=== PATIENT | female | born 1995 | race African-American/Black ===

== ENCOUNTER 2016-12-29 07:03 | Emergency (ER) | payer MEDICAID, OTHER ==
--- NOTE | 2016-12-29 08:23 | ED ---
Breast Complaint - HPI Summary HPI Summary: Pt here w/ Lt breast lump with tenderness x 1 week. Noticed it's been getting larger as week progresses. Wears an under wire bra which often digs into skin on both sides - no skin trauma to report. Denies pain anywhere else in breast and no other skin changes, nipple d/c, axillary fullness or tenderness, fever, chills, night sweats, unintentional weight loss. She is currently working with her insurance company to get a breast reduction. No h/o breast issues but has never had an exam here. Also reports she's adopted and unaware of her fam h/o. She reports she herself has had a few cysts on her Rt wrist. Denies h/o abscess/ infections. She has [facility] for [facility] but couldn't wait as her pain is worse. - History of Current Complaint Hx Obtained From: Patient <Sue Chapman - Last Filed: 12/29/16 09:51> <Maribell Vincent - Last Filed: 12/30/16 09:53> - Allergy/Home Medications Allergies/Adverse Reactions: Allergies Allergy/AdvReac Type Severity Reaction Status Date / Time No Known Allergies Allergy Verified 12/21/15 18:55 PMH/Surg Hx/FS Hx/Imm Hx Previously Healthy: Yes Endocrine/Hematology History: Denies: Hx Anticoagulant Therapy, Hx Diabetes, Hx Thyroid Disease Cardiovascular History: Denies: Hx Hypertension Respiratory History: Denies: Hx Asthma, Hx Chronic Obstructive Pulmonary Disease (COPD) GI History: Denies: Hx Ulcer Neurological History: Reports: Hx Migraine - Surgical History Surgery Procedure, Year, and Place: wrist surgery, TONSILLECTOMY, WISDOM TEETH Infectious Disease History: No Infectious Disease History: Denies: Hx Hepatitis, Hx Human Immunodeficiency Virus (HIV), Traveled Outside the [place] in Last 30 Days - Family History Known Family History: Positive: Unknown - pt adopted - Social History Occupation: Student Lives: With Family - boyfriend Alcohol Use: None Hx Substance Use: No Substance Use Type: Reports: None Hx Tobacco Use: No Smoking Status (MU): Never Smoked Tobacco <Sue Chapman - Last Filed: 12/29/16 09:51> Review of Systems Constitutional: Negative Cardiovascular: Negative Respiratory: Negative Gastrointestinal: Negative Positive: no symptoms reported Musculoskeletal: Negative Skin: Other - see HPI Neurological: Negative Psychological: Normal All Other Systems Reviewed And Are Negative: Yes <Sue Chapman - Last Filed: 12/29/16 09:51> Physical Exam Triage Information Reviewed: Yes Vital Signs On Initial Exam: Initial Vitals Temp Pulse Resp BP Pulse Ox 97.4 F 69 16 120/71 100 12/29/16 07:15 12/29/16 07:15 12/29/16 07:15 12/29/16 07:15 12/29/16 07:15 Vital Signs Reviewed: Yes Appearance: Positive: Well-Appearing, No Pain Distress, Well-Nourished Skin: Positive: Warm, Dry, Other - 2cm area of well demarcated, firm, somewhat mobile and tender area at 7:00 in Lt breast - overlying skin w/ hyperpigmentation - no central pore, no erythema, no drainage; axillary and humeral LN's are non-palpable and NTTP; Rt axilla w/ area of mild tenderness - no julia mass palpated Head/Face: Positive: Normal Head/Face Inspection Eyes: Positive: Normal, EOMI ENT: Positive: Hearing grossly normal, Pharynx normal - mucosa moist Neck: Positive: Supple, Nontender Respiratory/Lung Sounds: Positive: Breath Sounds Present Cardiovascular: Positive: Normal, RRR, Pulses are Symmetrical in both Upper and Lower Extremities Abdomen Description: Positive: Nontender, No Organomegaly, Soft Musculoskeletal: Positive: Normal, Strength/ROM Intact Neurological: Positive: Normal, Sensory/Motor Intact, Alert, Oriented to Person Place, Time, CN Intact II-III Psychiatric: Positive: Normal <Sue Chapman - Last Filed: 12/29/16 09:51> Vital Signs On Initial Exam: Initial Vitals Temp Pulse Resp BP Pulse Ox 97.4 F 69 16 120/71 100 12/29/16 07:15 12/29/16 07:15 12/29/16 07:15 12/29/16 07:15 12/29/16 07:15 <Maribell Vincent - Last Filed: 12/30/16 09:53> Diagnostics - Vital Signs Vital Signs Temp Pulse Resp BP Pulse Ox 12/29/16 07:15 97.4 F 69 16 120/71 100 - Laboratory Result Diagrams: 12/29/16 08:25 12/29/16 08:25 Lab Statement: Any lab studies that have been ordered have been reviewed, and results considered in the medical decision making process. <Sue Chapman - Last Filed: 12/29/16 09:51> - Vital Signs Vital Signs Temp Pulse Resp BP Pulse Ox 12/29/16 10:05 97.6 F 66 16 119/85 12/29/16 08:27 60 119/88 12/29/16 07:15 97.4 F 69 16 120/71 100 - Laboratory Lab Results: Lab Results 12/29/16 12/29/16 Range/Units 08:25 08:25 WBC 8.3 (3.5-10.8) 10^3/ul RBC 4.74 (4.0-5.4) 10^6/ul Hgb 13.9 (12.0-16.0) g/dl Hct 41 (35-47) % MCV 87 (80-97) fL MCH 29 (27-31) pg MCHC 34 (31-36) g/dl RDW 13 (10.5-15) % Plt Count 211 (150-450) 10^3/ul MPV 8 (7.4-10.4) um3 Neut % (Auto) 66.6 (38-83) % Lymph % (Auto) 24.3 L (25-47) % [place] % (Auto) 7.7 (1-9) % Eos % (Auto) 0.9 (0-6) % Baso % (Auto) 0.5 (0-2) % Absolute Neuts (auto) 5.5 (1.5-7.7) 10^3/ul Absolute Lymphs (auto) 2.0 (1.0-4.8) 10^3/ul Absolute Monos (auto) 0.6 (0-0.8) 10^3/ul Absolute Eos (auto) 0.1 (0-0.6) 10^3/ul Absolute Basos (auto) 0 (0-0.2) 10^3/ul Absolute Nucleated RBC 0 10^3/ul Nucleated RBC % 0 Sodium 135 (133-145) mmol/L Potassium 4.2 (3.5-5.0) mmol/L Chloride 103 (101-111) mmol/L Carbon Dioxide 26 (22-32) mmol/L Anion Gap 6 (2-11) mmol/L BUN 16 (6-24) mg/dL Creatinine 0.71 (0.51-0.95) mg/dL Est GFR ( Amer) 133.6 (>60) Est GFR (Non-Af Amer) 103.9 (>60) BUN/Creatinine Ratio 22.5 H (8-20) Glucose 85 (70-100) mg/dL Calcium 9.3 (8.6-10.3) mg/dL Total Bilirubin 0.60 (0.2-1.0) mg/dL AST 13 (13-39) U/L ALT 11 (7-52) U/L Alkaline Phosphatase 65 (34-104) U/L Total Protein 6.8 (6.4-8.9) g/dL Albumin 4.3 (3.2-5.2) g/dL Globulin 2.5 (2-4) g/dL Albumin/Globulin Ratio 1.7 (1-3) Result Diagrams: 12/29/16 08:25 12/29/16 08:25 Lab Statement: Any lab studies that have been ordered have been reviewed, and results considered in the medical decision making process. <Maribell Vincent - Last Filed: 12/30/16 09:53> Breast Pain Course/Dx - Course Course Of Treatment: Reviewed results w/ radiologist, Dr. Mann. Discussed with pt this finding could be cancer - she voices understanding that she needs to have follow-up with a surgeon for biopsy of this complex cyst. Also reviewed other dx's such as benign cyts and education that it could become infected. She is aware of danger s/sx to watch for and when to return to ED. Provided pt w/ her breast U/S report results as well as contact information for Dr. Trent. She will also keep her appt Wed w/ PP and will release records to PP so they may help guide her through care until she can establish with a PCP. She will call referral line Friday to establish w/ PCP. - Provider Notifications Discussed Care Of Patient With: Dr. Vincent <Sue Chapman - Last Filed: 12/29/16 09:51> <Maribell Vincent - Last Filed: 12/30/16 09:53> - Diagnoses Provider Diagnoses: Cyst of left breast Discharge <Sue Chapman - Last Filed: 12/29/16 09:51> <Maribell Vincent - Last Filed: 12/30/16 09:53> - Discharge Plan Condition: Stable Disposition: HOME Patient Education Materials: Cyst (ED) Referrals: No Primary Care Phys,NOPCP [Primary Care Provider] - [facility] [place] PHYSICIAN REFERRAL [Outside] Salazar Trent MD [Medical Doctor] - Additional Instructions: Your Left breast appears to have a complex cyst. You may treat the pain here with warm compresses and ibuprofen (take 400mg - 600mg every 6 hours with food. ) [facility] appointment [facility] - they may repeat your breast exam to asses for change from today. They may also help you coordinate a follow-up appointment with a breast surgeon for biopsy of your cyst. A surgeon's name and contact information has also been provided here below if you prefer to go directly through a surgeon for biopsy at this time as you stated you are in the process of finding a primary care provider. You may establish with a PCP by calling the referral line Friday. *If you develop redness, swelling, nipple drainage, fever, chills or armpit pain /swelling sooner, return to ED Attestations User Type: Provider - I was available for consult. This patient was seen by the advanced practice provider. The patient was not seen by or examined by me. <Maribell Vincent - Last Filed: 12/30/16 09:53>
[2016-12-29 08:35] LABS: Hematocrit 41 % (35-47); Hemoglobin 13.9 g/dl (12.0-16.0); Mean Corpuscular HGB Conc 34 g/dl (31-36); Mean Corpuscular Hemoglobin 29 pg (27-31); Mean Corpuscular Volume 87 fL (80-97); Mean Platelet Volume 8 um3 (7.4-10.4); Red Blood Count 4.74 10^6/ul (4.0-5.4); Red Cell Distribution Width 13 % (10.5-15); White Blood Count 8.3 10^3/ul (3.5-10.8)
--- NOTE | 2016-12-29 09:32 | RAD ---
CLINICAL HISTORY: Palpable abnormality of the left breast in the 7:00 position COMPARISON: None TECHNIQUE: Multiple radial and antiradial ultrasound images were obtained of the left breast using grayscale and color Doppler imaging. FINDINGS: MASSES: There are no suspicious nodules or masses. ARCHITECTURE: There is no architectural distortion. CALCIFICATIONS: There is no shadowing. SPECIAL CASES: In the left breast in the 7:00 position at the area palpable, there is 1.6 x 1 x 1.5 cm complex lesion with internal echogenicity, without nodularity. The margins are somewhat dilated. There is no peripheral vascularity. There is posterior acoustic enhancement OTHER FINDINGS: None. ASSESSMENT: COMPLEX CYST OF THE LEFT BREAST IN THE 7:00 POSITION. THERE IS NO HYPERVASCULARITY TO SUGGEST ABSCESS. RECOMMENDATION: GIVEN THE IMAGING APPEARANCE AND THE HISTORY OF PALPABLE ABNORMALITY, RECOMMEND FURTHER EVALUATION WITH TISSUE SAMPLING. THIS CAN BE PERFORMED WITH PHYSICAL EXAMINATION OR ULTRASOUND GUIDED BIOPSY. THE RECOMMENDATION FOR TISSUE SAMPLING WAS DISCUSSED WITH ILDA BRIDGES AT APPROXIMATELY 9:30 AM ON DECEMBER 29, 2016 ACR BI-RADS Category 4: Suspicious
[2016-12-29 09:34] LABS: Albumin 4.3 g/dL (3.2-5.2); BUN/Creatinine Ratio 22.5 (8-20); Calcium 9.3 mg/dL (8.6-10.3); EGFR African American 133.6 (>60); EGFR Non-African American 103.9 (>60); Globulin 2.5 g/dL (2-4); Potassium 4.2 mmol/L (3.5-5.0); Total Bilirubin 0.6 mg/dL (0.2-1.0); Total Protein 6.8 g/dL (6.4-8.9)
[2016-12-29 10:08] VITALS: BP 119/85
== END 2016-12-29 10:05 | disposition home or self-care (01) ==
LOC: ED 07:03
DX: N60.02 Solitary cyst of left breast (principal)
CPT/HCPCS: 36415; 80053; 85025; 99282

== ENCOUNTER 2016-12-30 22:40 | Emergency (ER) | payer MEDICAID, OTHER ==
[2016-12-30 22:45] VITALS: BP 131/94
--- NOTE | 2016-12-30 23:48 | ED ---
Breast Complaint - HPI Summary HPI Summary: The patient is a 21 female presenting to ED for complaint of worsening pain and swelling in left breast which started several days ago. Denies fever, chills diaphoresis, redness, warmth, drainage, nipple retraction, or dimpling. History of pendulous breasts and migraines. S/P benign cyst removal from right wrist, tonsillectomy, wisdom teeth extraction. Family history unknown as patient is adopted. LMP 2 years ago due to placement of Mirena. NKDA. SH: Lives with adopted family. Denies smoking, alcohol or recreational substance use. - Allergy/Home Medications Allergies/Adverse Reactions: Allergies Allergy/AdvReac Type Severity Reaction Status Date / Time No Known Allergies Allergy Verified 12/21/15 18:55 PMH/Surg Hx/FS Hx/Imm Hx Endocrine/Hematology History: Denies: Hx Anticoagulant Therapy, Hx Diabetes, Hx Thyroid Disease Cardiovascular History: Denies: Hx Hypertension Respiratory History: Denies: Hx Asthma, Hx Chronic Obstructive Pulmonary Disease (COPD) GI History: Denies: Hx Ulcer Neurological History: Reports: Hx Migraine - Surgical History Surgery Procedure, Year, and Place: wrist surgery, TONSILLECTOMY, WISDOM TEETH Infectious Disease History: No Infectious Disease History: Denies: Hx Hepatitis, Hx Human Immunodeficiency Virus (HIV), Traveled Outside the [place] in Last 30 Days - Family History Known Family History: Positive: Unknown - pt adopted - Social History Alcohol Use: None Hx Substance Use: No Substance Use Type: Reports: None Hx Tobacco Use: No Smoking Status (MU): Never Smoked Tobacco Review of Systems Constitutional: Negative Negative: Fever, Chills Positive: Other - tender lump left breast. Negative: Rash All Other Systems Reviewed And Are Negative: Yes Physical Exam Triage Information Reviewed: Yes Vital Signs On Initial Exam: Initial Vitals Temp Pulse Resp BP Pulse Ox 97.1 F 89 18 131/94 100 12/30/16 22:42 12/30/16 22:42 12/30/16 22:42 12/30/16 22:42 12/30/16 22:42 Vital Signs Reviewed: Yes Appearance: Positive: Well-Appearing, No Pain Distress, Obese Skin: Positive: Warm, Skin Color Reflects Adequate Perfusion, Dry, Other - BREAST: large pendulous symmetric breasts, no nipple retraction or dimpling; left inferomedial breast at 7 o'clock position with 2x3cm mildly tender rubbery nodule with faint erythema without pustule or drainage; no axillary lymphadenopathy Eyes: Positive: Other: - Anicteric ENT: Positive: Hearing grossly normal, Other - Oral mucosa moist Neck: Positive: Supple Respiratory/Lung Sounds: Positive: Clear to Auscultation, Breath Sounds Present. Negative: Decreased Breath Sounds, Rales, Rhonchi, Wheezes Cardiovascular: Positive: Normal, RRR, S1, S2. Negative: Murmur, Rub, Tachycardia Musculoskeletal: Positive: Normal - AROM all extremities Neurological: Positive: Normal - awake, alert, following commands Psychiatric: Positive: Normal AVPU Assessment: Alert - [place] Coma Scale Coma Scale Total: 15 Diagnostics - Vital Signs Vital Signs Temp Pulse Resp BP Pulse Ox 12/30/16 22:42 97.1 F 89 18 131/94 100 - Laboratory Lab Statement: Any lab studies that have been ordered have been reviewed, and results considered in the medical decision making process. Breast Pain Course/Dx - Course Assessment/Plan: Patient presents for worsening pain and swelling in left breast. US demonstrates 2.5x1.6x1.1 m complex collection at 7 o'clock larger compared with 12/29/16. Suspect early abscess though malignancy not ruled out. Patient will be intiated on ABx. Advised to call general surgeon Dr. Trent tomorrow to schedule biopsy. - Diagnoses Provider Diagnoses: Breast mass in female Discharge - Discharge Plan Condition: Stable Disposition: HOME Prescriptions: Cephalexin CAP* [Keflex CAP*] 500 mg PO TID #30 cap Patient Education Materials: Breast Mass (ED) Referrals: Salazar Trent MD [Medical Doctor] - (Call tomorrow to schedule follow-up in 2 -4 days.)
[2016-12-31] MEDS ORDERED: Cephalexin CAP* 500 MG PO ONE ×2 (00:37)
--- NOTE | 2016-12-31 07:43 | RAD ---
INDICATION: 21-year-old with palpable abnormality left breast at the 7:00 position. Breast is red and tender COMPARISON: None TECHNIQUE: Radial and antiradial scans of the breast were performed using grayscale and color Doppler imaging. FINDINGS: There is a avascular, complex hypoechoic fluid collection in left breast at 7:00 measuring 2.5 x 1.6 x 1.1 cm. There is well-defined posterior wall. There is no increased through transmission or acoustic shadowing There is peripheral hypervascularity. IMPRESSION: SONOGRAPHIC FINDINGS MOST CONSISTENT WITH A BREAST ABSCESS. SUGGEST SURGICAL REFERRAL FOR MANAGEMENT OF THIS PALPABLE FINDING. SUGGEST FOLLOW-UP ULTRASONOGRAPHY AFTER APPROPRIATE INTERVENTION AND/OR THERAPY. ASSESSMENT: ACR BI-RADS Category 4: Suspicious
== END 2016-12-31 01:09 | disposition home or self-care (01) ==
LOC: ED 22:40
DX: N63 Unspecified lump in breast (principal)
CPT/HCPCS: 99282; A9270-GY

== ENCOUNTER 2017-07-01 09:46 | Emergency (ER) | payer MEDICAID, OTHER ==
[2017-07-01] MEDS ORDERED: Ibuprofen TAB* 600 MG PO ONE (11:26)
--- NOTE | 2017-07-01 12:25 | RAD ---
HISTORY: Right upper quadrant pain COMPARISONS: None TECHNIQUE: Multiple transverse and longitudinal ultrasound images were obtained of the right upper quadrant of the abdomen using grayscale and color Doppler imaging. FINDINGS: The study is limited by patient bowel gas. LIVER: The liver is normal in shape, size, contour, and echogenicity. There are no focal parenchymal masses. There is normal hepatopedal flow of the portal vein on Doppler imaging. BILIARY TREE: There is no intrahepatic or extrahepatic biliary dilatation. The common duct measures 0.3 cm. GALLBLADDER: The gallbladder is well-visualized. There is no cholelithiasis, gallbladder wall thickening, pericholecystic fluid, or sonographic [place] sign. PANCREAS: The pancreas is obscured by overlying bowel gas. RIGHT KIDNEY: The right kidney is normal in shape, size, contour, and echogenicity. There is no hydronephrosis or nephrolithiasis. The right kidney measures 9.9 x 6.7 x 5.4 cm. AORTA AND IVC: The aorta is not well-visualized. There is is unremarkable. FLUID: There are no pleural effusions. There is no free fluid within the hepatorenal recess. OTHER FINDINGS: None. IMPRESSION: LIMITED STUDY. NO ACUTE SONOGRAPHIC PATHOLOGY OF THE VISUALIZED PORTION OF THE ABDOMEN.
[2017-07-01 12:40] LABS: Hematocrit 45 % (35-47); Hemoglobin 14.8 g/dl (12.0-16.0); Mean Corpuscular HGB Conc 33 g/dl (31-36); Mean Corpuscular Hemoglobin 29 pg (27-31); Mean Corpuscular Volume 89 fL (80-97); Mean Platelet Volume 8 um3 (7.4-10.4); Red Blood Count 5.02 10^6/ul (4.0-5.4); Red Cell Distribution Width 14 % (10.5-15); White Blood Count 10.6 10^3/ul (3.5-10.8)
[2017-07-01 12:57] LABS: Albumin 4.2 g/dL (3.2-5.2); BUN/Creatinine Ratio 15.1 (8-20); C Reactive Protein 90.74 mg/L (< 5.00); Calcium 9.5 mg/dL (8.6-10.3); EGFR African American 128.2 (>60); EGFR Non-African American 99.7 (>60); Globulin 3.2 g/dL (2-4); Magnesium 2.2 mg/dL (1.9-2.7); Total Bilirubin 0.9 mg/dL (0.2-1.0); Total Protein 7.4 g/dL (6.4-8.9)
--- NOTE | 2017-07-01 13:05 | RAD ---
INDICATION: Chest pain COMPARISON: February 2011 TECHNIQUE: PA and lateral dual-energy views were obtained. FINDINGS: Bones/Soft Tissues: There are no acute bony findings. Cardiomediastinal: The cardiomediastinal silhouette is normal. Lungs: There are no infiltrates. Pleura: There are no pleural effusions. Other: Mild elevation right hemidiaphragm. IMPRESSION: NO ACTIVE DISEASE.
[2017-07-01 13:16] LABS: Urine Bacteria Absent (Absent); Urine Bilirubin Negative (Negative); Urine Glucose Negative (Negative); Urine Nitrite Negative (Negative)
--- NOTE | 2017-07-01 13:46 | ED ---
Vaishnavi Alaniz Rebecca, scribed for Gurmeet Jimenez MD on 07/01/17 at 1127 . Abdominal Pain/Female - HPI Summary HPI Summary: PT is a 22 y/o F who presents to ED c/o RUQ abdominal pain. Sx began 3 days ago and have been constant since onset, waxing and waning in intensity. Pain is currently moderate, ranked 4/10 and characterized as sharp. Sx aggravated by laying down and position change, alleviated by nothing, unchanged by food. Denies fever, chills, N/V/D, SOB, palpitations, dysuria, LE pain and edema. She last ate last night. No recent travel. NKDA - History of Current Complaint Chief Complaint: EDAbdPain Stated Complaint: RT SIDE FLANK SHARP PAIN Time Seen by Provider: 07/01/17 11:13 Hx Obtained From: Patient Hx Last Menstrual Period: iud Onset/Duration: Lasting Days - 3 days, Still Present Severity Currently: Moderate Pain Intensity: 4 Pain Scale Used: 0-10 Numeric Location: Discrete At: RUQ Character: Sharp Aggravating Factor(s): Movement, Deep Breaths Alleviating Factor(s): Nothing Associated Signs and Symptoms: Positive: Negative. Negative: Fever, Urinary Symptoms, Nausea, Vomiting, Diarrhea Allergies/Adverse Reactions: Allergies Allergy/AdvReac Type Severity Reaction Status Date / Time No Known Allergies Allergy Verified 07/01/17 09:49 PMH/Surg Hx/FS Hx/Imm Hx Endocrine/Hematology History: Denies: Hx Anticoagulant Therapy, Hx Diabetes, Hx Thyroid Disease Cardiovascular History: Denies: Hx Hypertension Respiratory History: Denies: Hx Asthma, Hx Chronic Obstructive Pulmonary Disease (COPD) GI History: Denies: Hx Ulcer Neurological History: Reports: Hx Migraine - Surgical History Surgery Procedure, Year, and Place: wrist surgery, TONSILLECTOMY, WISDOM TEETH Infectious Disease History: No Infectious Disease History: Denies: Hx Hepatitis, Hx Human Immunodeficiency Virus (HIV), Traveled Outside the [place] in Last 30 Days - Family History Known Family History: Positive: Unknown - pt adopted - Social History Alcohol Use: None Hx Substance Use: No Substance Use Type: Reports: None Hx Tobacco Use: No Smoking Status (MU): Never Smoked Tobacco Review of Systems Negative: Fever, Chills Negative: Palpitations Negative: Shortness Of Breath Positive: Abdominal Pain - RUQ. Negative: Vomiting, Diarrhea, Nausea Negative: dysuria Positive: Other - NEGATIVE: LE pain. Negative: Edema All Other Systems Reviewed And Are Negative: Yes Physical Exam Triage Information Reviewed: Yes Vital Signs On Initial Exam: Initial Vitals Temp Pulse Resp BP Pulse Ox 97.7 F 95 16 123/82 98 07/01/17 09:49 07/01/17 09:49 07/01/17 09:49 07/01/17 09:49 07/01/17 09:49 Vital Signs Reviewed: Yes Appearance: Positive: Well-Appearing, No Pain Distress Skin: Positive: Warm, Skin Color Reflects Adequate Perfusion Head/Face: Positive: Normal Head/Face Inspection Eyes: Positive: EOMI ENT: Positive: Normal ENT inspection, Hearing grossly normal Neck: Positive: Supple, Nontender Respiratory/Lung Sounds: Positive: Clear to Auscultation, Breath Sounds Present , Other - no chest wall tenderness, but having her sit up and turn recreate the symptoms of pain in the right lower chest, ruq. Cardiovascular: Positive: RRR. Negative: Murmur Abdomen Description: Positive: No Organomegaly, Other: - slight tenderness RUQ Musculoskeletal: Positive: Strength/ROM Intact. Negative: Edema Left, Edema Right Neurological: Positive: Sensory/Motor Intact, Alert, Oriented to Person Place, Time, CN Intact II-III Psychiatric: Positive: Normal - [place] Coma Scale Coma Scale Total: 15 Diagnostics - Vital Signs Vital Signs Temp Pulse Resp BP Pulse Ox 07/01/17 10:14 98.4 F 92 15 120/82 98 07/01/17 09:49 97.7 F 95 16 123/82 98 - Laboratory Result Diagrams: 07/01/17 12:29 07/01/17 12:29 Lab Statement: Any lab studies that have been ordered have been reviewed, and results considered in the medical decision making process. - Radiology CXR Xray Interpretation: No Acute Changes - NO ACTIVE DISEASE. Radiology Interpretation Completed By: Radiologist - Ultrasound No standard instances Ultrasound Interpretation: No Acute Changes - Abdomen US: LIMITED STUDY. NO ACUTE SONOGRAPHIC PATHOLOGY OF THE VISUALIZED PORTION OF THE ABDOMEN. Ultrasound Interpretation Completed By: Radiologist - EKG 1202 Cardiac Rate: NL - 76 bpm EKG Rhythm: Sinus Rhythm EKG Interpretation: No acute changes Re-Evaluation - Re-Evaluation First Eval Re-Evaluation Time: 13:30 Change: Improved Comment: Discussed results and D/C plan with the pt. Pt feels well and requested a work note. Abdominal Pain Fem Course/Dx - Course Course Of Treatment: 22 yr old female with right side upper abd pain with obvious urine infection by testing. Other studies negative. Rx ten days with cipro - Diagnoses Provider Diagnoses: Pyelonephritis Discharge - Discharge Plan Condition: Good Disposition: HOME Prescriptions: Ciprofloxacin TAB* [Cipro 500 MG TAB*] 500 mg PO BID #20 tab Patient Education Materials: Kidney Infection (ED) Referrals: No Primary Care Phys,NOPCP [Primary Care Provider] - [facility] – [place] [facility]IAN REFERRAL [Outside] The documentation as recorded by the Vaishnavi fitzgerald Rebecca accurately reflects the service I personally performed and the decisions made by me, Gurmeet Jimenez MD.
[2017-07-01 14:34] VITALS: BP 126/86
== END 2017-07-01 14:36 | disposition home or self-care (01) ==
LOC: ED 09:46
DX: N12 Tubulo-interstitial nephritis, not specified as acute or chronic (principal); R10.11 Right upper quadrant pain
CPT/HCPCS: 36415; 71020; 76705; 80053; 81003; 81015; 83605; 83690; 83735; 83880; 84484; 84702; 85025; 85379; 85610; 86140; 87086; 93005; 99283; A9270-GY

== ENCOUNTER 2018-04-26 12:41 | Emergency (ER) | payer OTHER ==
[2018-04-26 12:56] VITALS: BP 125/77
--- NOTE | 2018-04-26 13:37 | UC ---
Upper Extremity HPI - HPI Summary HPI Summary: While roughousing/playing with dog 3 days ago, dog got over-excited and bit pt on RFA. Last Tdap 2013; dog is currently in pt's custody, acting normal. Denies pain, swelling, redness, or streaking from injury. - History of Current Complaint Chief Complaint: UCBiteInjury Stated Complaint: DOG BITE Time Seen by Provider: 04/26/18 13:12 Hx Obtained From: Patient Hx Last Menstrual Period: 04/17/18 ?: No Onset/Duration: Sudden Onset Severity Initially: Moderate Severity Currently: Mild Pain Intensity: 1 Character: Dull Aggravating Factor(s): Nothing Alleviating Factor(s): Nothing Associated Signs And Symptoms: Positive: Bruising Related History: Dominant Hand Right - Allergies/Home Medications Allergies/Adverse Reactions: Allergies Allergy/AdvReac Type Severity Reaction Status Date / Time No Known Allergies Allergy Verified 04/26/18 12:56 PMH/Surg Hx/FS Hx/Imm Hx Previously Healthy: Yes Other History Of: Negative For: Anticoagulant Therapy - Surgical History Surgical History: Yes Surgery Procedure, Year, and Place: wrist surgery, TONSILLECTOMY, WISDOM TEETH - Family History Known Family History: Positive: Unknown - pt adopted - Social History Lives: With Family Alcohol Use: Occasionally Substance Use Type: None Smoking Status (MU): Never Smoked Tobacco - Immunization History Vaccination Up to Date: Yes Review of Systems Constitutional: Negative Skin: Bruising, Other - abrasions Eyes: Negative ENT: Negative Respiratory: Negative Cardiovascular: Negative Gastrointestinal: Negative Genitourinary: Negative Motor: Negative Neurovascular: Negative Musculoskeletal: Negative Neurological: Negative Psychological: Negative Is Patient Immunocompromised?: No All Other Systems Reviewed And Are Negative: Yes Physical Exam Triage Information Reviewed: Yes Appearance: Well-Appearing, No Pain Distress, Obese Vital Signs: Initial Vital Signs Temp 97.9 F 04/26/18 12:50 Pulse 75 04/26/18 12:50 Resp 18 04/26/18 12:50 BP 125/77 04/26/18 12:50 Pulse Ox 100 04/26/18 12:50 Vital Signs Reviewed: Yes Eye Exam: Normal Eyes: Positive: Conjunctiva Clear ENT Exam: Normal ENT: Positive: Normal ENT inspection, Hearing grossly normal, Pharynx normal, TMs normal Dental Exam: Normal Neck exam: Normal Respiratory Exam: Normal Respiratory: Positive: Chest non-tender, Lungs clear, Normal breath sounds, No respiratory distress, No accessory muscle use Cardiovascular Exam: Normal Cardiovascular: Positive: RRR, No Murmur Musculoskeletal Exam: Normal Musculoskeletal: Positive: Strength Intact, ROM Intact Neurological Exam: Normal Psychological Exam: Normal Skin Exam: Other - scratches and bruising to RFA, no erythema, streaking, drainage Upper Extremity Course/Dx - Differential Dx/Diagnosis Provider Diagnoses: dog bite to right arm without complication Discharge - Sign-Out/Discharge Documenting (check all that apply): Discharge/Admit/Transfer - Discharge Plan Condition: Stable Disposition: HOME Patient Education Materials: Animal Bite (ED) Referrals: No Primary Care Phys,NOPCP [Primary Care Provider] - Additional Instructions: Keep your dog separate from other animals and observe for health changes. Please stay in contact with the [facility]. Your tetanus vaccine is up-to-date, and your bite wound does not show any signs of infection. Please call or come back if you have new/worsening symptoms. - Billing Disposition and Condition Condition: STABLE Disposition: Home
== END 2018-04-26 13:43 | disposition home or self-care (01) ==
LOC: UCEAST 12:41
DX: S50.11XA Contusion of right forearm, initial encounter (principal); S50.811A Abrasion of right forearm, initial encounter; W54.0XXA Bitten by dog, initial encounter; Y93.83 Activity, rough housing and horseplay; Y92.9 Unspecified place or not applicable
CPT/HCPCS: 99211; G0463

== ENCOUNTER 2018-07-11 20:56 | Emergency (ER) | payer SELFPAY ==
--- NOTE | 2018-07-11 22:31 | ED ---
Upper Extremity Pain - HPI Summary HPI Summary: 23-year-old female presents with right middle finger deformity today. States she got it caught on some furniture. She denies any numbness or tingling. She has limited range of motion finger at PIP. She denies any previous fractures dislocations. She is right-handed. She does not computer work. no other injury. is in 10 out of 10 pain. - History of Current Complaint Chief Complaint: EDExtremityUpper Stated Complaint: RIGHT FINGER INJURY Time Seen by Provider: 07/11/18 22:25 Hx Last Menstrual Period: 04/17/18 - Allergies/Home Medications Allergies/Adverse Reactions: Allergies Allergy/AdvReac Type Severity Reaction Status Date / Time No Known Allergies Allergy Verified 04/26/18 12:56 PMH/Surg Hx/FS Hx/Imm Hx Endocrine/Hematology History: Denies: Hx Anticoagulant Therapy, Hx Diabetes, Hx Thyroid Disease Cardiovascular History: Denies: Hx Hypertension Respiratory History: Denies: Hx Asthma, Hx Chronic Obstructive Pulmonary Disease (COPD) GI History: Denies: Hx Ulcer Neurological History: Reports: Hx Migraine - Surgical History Surgery Procedure, Year, and Place: wrist surgery, TONSILLECTOMY, WISDOM TEETH Infectious Disease History: No Infectious Disease History: Denies: Hx Hepatitis, Hx Human Immunodeficiency Virus (HIV), Traveled Outside the [place] in Last 30 Days - Family History Known Family History: Positive: Unknown - pt adopted - Social History Alcohol Use: Occasionally Hx Substance Use: No Substance Use Type: Reports: None Hx Tobacco Use: No Smoking Status (MU): Never Smoked Tobacco Review of Systems Negative: Fever Negative: Chest Pain Negative: Shortness Of Breath Positive: Other - deformity right middle finger All Other Systems Reviewed And Are Negative: Yes Physical Exam Triage Information Reviewed: Yes Vital Signs On Initial Exam: Initial Vitals Temp Pulse Resp BP Pulse Ox 99 F 105 20 128/86 96 07/11/18 21:02 07/11/18 21:02 07/11/18 21:02 07/11/18 21:02 07/11/18 21:02 Vital Signs Reviewed: Yes Appearance: Positive: Well-Appearing Skin: Positive: Warm, Dry Head/Face: Positive: Normal Head/Face Inspection Eyes: Positive: Normal, Conjunctiva Clear Respiratory/Lung Sounds: Positive: Clear to Auscultation, Breath Sounds Present Cardiovascular: Positive: Normal, RRR Musculoskeletal: Positive: Limited @ - deformity to PIP right ring finger, Other - capillary refill<2 secs, sensation grossly intact Neurological: Positive: Normal Psychiatric: Positive: Normal Procedures - Joint Reduction finger Joint Reduction Site: other Specify Other Joint Reduced: right middle finger Reduction Attempts: 1 - digital block Pre-Procedure NV Exam: Yes Diagnostics - Vital Signs Vital Signs Temp Pulse Resp BP Pulse Ox 07/11/18 21:02 99 F 105 20 128/86 96 - Laboratory Lab Statement: Any lab studies that have been ordered have been reviewed, and results considered in the medical decision making process. Course/Dx - Course Course Of Treatment: 23-year-old female presents with right middle finger deformity today. States she got it caught on some furniture. She denies any numbness or tingling. She has limited range of motion finger at PIP. She denies any previous fractures dislocations. She is right-handed. She does not computer work. no other injury. is in 10 out of 10 pain. On exam has deformity at PIP of right middle finger. Neurovascular intact. X-ray shows dislocation. Performed a digital block and place finger back in place. Placed finger splint on area. Patient understands agrees with plan. - Diagnoses Differential Diagnosis/HQI/PQRI: Positive: Fracture (Closed), Sprain, Other - dislocation Provider Diagnoses: Dislocation of right ring finger Discharge - Sign-Out/Discharge Documenting (check all that apply): Patient Departure - Discharge Plan Condition: Good Disposition: HOME Patient Education Materials: Finger Dislocation (ED) Referrals: Valery Alonzo NP [Primary Care Provider] - Wood Mock MD [Medical Doctor] - Additional Instructions: Keep finger in splint Follow up with ortho Take tyenlol or ibuprofen for pain every 6 hours Return to ED if develop any new or worsening symptoms - Billing Disposition and Condition Condition: GOOD Disposition: Home
[2018-07-11 22:51] VITALS: BP 141/88
--- NOTE | 2018-07-12 08:42 | RAD ---
INDICATION: Jamming injury to the right ring finger COMPARISON: None. TECHNIQUE: 3 views of the right ring finger were obtained. FINDINGS: At the right ring finger the middle phalanx is dislocated laterally and dorsally one bone width relative to the proximal phalanx. There is no radiographically apparent fracture. Remaining visualized bones are intact and appropriately aligned. IMPRESSION: DISLOCATION AT THE RIGHT RING FINGER PROXIMAL INTERPHALANGEAL JOINT. R0.
== END 2018-07-11 22:50 | disposition home or self-care (01) ==
LOC: ED 20:56
DX: S63.274A Dislocation of unspecified interphalangeal joint of right ring finger, initial encounter (principal); W22.8XXA Striking against or struck by other objects, initial encounter; Y92.9 Unspecified place or not applicable
CPT/HCPCS: 26770; 73140; 99282

== ENCOUNTER 2019-02-11 15:19 | Emergency (ER) | payer SELFPAY ==
[2019-02-11 15:40] VITALS: BP 146/87
--- NOTE | 2019-02-11 15:59 | UC ---
Abdominal Pain Female HPI - HPI Summary HPI Summary: 23-year-old female presents with several weeks' worth of pretty continuous right upper quadrant pain. The pain is dull in nature. She states that there is no changes in this with eating. She denies any fever, shakes or chills, urinary difficulties or nausea/vomiting/diarrhea. She has no injury to the area. She is not on any medications for this or other things. She was recently diagnosed with PCOS and has an appointment with [facility] [facility] TE[facility] tomorrow. She is not currently treated for this. She is not sexually active and had her menses 3 days ago. - History of Current Complaint Chief Complaint: UCAbdominalPain Stated Complaint: ABDOMINAL PAIN Time Seen by Provider: 02/11/19 15:51 Hx Obtained From: Patient Hx Last Menstrual Period: 3 days ago Pain Intensity: 3 Allergies/Adverse Reactions: Allergies Allergy/AdvReac Type Severity Reaction Status Date / Time No Known Allergies Allergy Verified 02/11/19 15:40 PMH/Surg Hx/FS Hx/Imm Hx Endocrine History: Other - Polycystic ovarian syndrome Other History Of: Negative For: Anticoagulant Therapy - Surgical History Surgical History: Yes Surgery Procedure, Year, and Place: wrist surgery, TONSILLECTOMY, WISDOM TEETH - Family History Known Family History: Positive: Unknown - pt adopted - Social History Lives: With Family Alcohol Use: Occasionally Substance Use Type: None Smoking Status (MU): Never Smoked Tobacco - Immunization History Vaccination Up to Date: Yes Review of Systems All Other Systems Reviewed And Are Negative: Yes Constitutional: Negative: Fever Skin: Positive: Negative ENT: Positive: Negative Respiratory: Positive: Negative Cardiovascular: Positive: Negative Gastrointestinal: Positive: Abdominal Pain. Negative: Vomiting, Diarrhea, Nausea Genitourinary: Negative: Dysuria, Hematuria, Frequency Motor: Positive: Negative Neurovascular: Positive: Negative Physical Exam Triage Information Reviewed: Yes Appearance: Well-Appearing, No Pain Distress Vital Signs: Initial Vital Signs Temp 98 F 02/11/19 15:34 Pulse 76 02/11/19 15:34 Resp 16 02/11/19 15:34 BP 146/87 02/11/19 15:34 Pulse Ox 100 02/11/19 15:34 Vital Signs Reviewed: Yes Eyes: Positive: Conjunctiva Clear ENT: Positive: Normal ENT inspection Neck: Positive: Supple Respiratory: Positive: Lungs clear Cardiovascular: Positive: RRR Abdomen Description: Positive: Other: - Mild tenderness with deep palpation in the right upper quadrant. Negative [place] sign. No rebound or guarding. No pain in the right lower quadrant. Overweight/obese. Musculoskeletal Exam: Normal Neurological: Positive: Alert Psychological Exam: Normal Skin Exam: Normal Diagnostics - Radiology GB US: Radiology Interpretation Completed By: Radiologist Summary of Radiographic Findings: Negative exam Re-Evaluation - Re-Evaluation First Eval Change: Improved - Urinalysis: Negative urine : Negative Abd Pain Female Course/Dx - Course Course Of Treatment: Extremely comfortable patient with right upper quadrant tenderness for a few weeks. I will treat her with Pepcid and stool. Sooners after a negative gallbladder ultrasound. She has no peritoneal signs. She is being rechecked by her [employer] tomorrow for polycystic ovarian syndrome. Negative UA and test. Lab Results 02/11/19 02/11/19 Range/Units 15:46 15:48 POC Urine Color Yellow POC Urine Clarity Clear POC Urine pH 7.5 (5-9) POC Ur Specif [place] 1.015 (1.010-1.030) POC Urine Protein Negative (Negative) POC Ur Glucose (UA) Negative (Negative) POC Urine Ketones Negative (Negative) POC Urine Blood Negative (Negative) POC Urine Nitrite Negative (Negative) POC Urine Bilirubin Negative (Negative) POC Urine Urobilinogen 0.2 (Negative) POC U Leukocyte Esteras Negative (Negative) POC Ur Test Negative (Negative) - Differential Dx/Diagnosis Differential Diagnosis: Appendicitis, Constipation, Gall Bladder Disease, Irritable Bowel Syndrome, Peptic Ulcer Disease Provider Diagnosis: Right upper quadrant abdominal pain Discharge - Sign-Out/Discharge Documenting (check all that apply): Patient Departure All imaging exams completed and their final reports reviewed: No Studies - Discharge Plan Condition: Improved Disposition: HOME Prescriptions: Famotidine TAB* [Pepcid 20 MG TAB*] 20 mg PO BID #60 tab Polyethylene Glycol 3350 BTL* [Miralax] 17 gm PO BID PRN #1 btl PRN Reason: Constipation Patient Education Materials: Acute Abdominal Pain (ED) Referrals: Valery Alonzo NP [Primary Care Provider] - Additional Instructions: Tylenol as needed for discomfort. Avoid anti-inflammatory medications, alcohol and spicy or acidic foods. Have your doctor recheck this tomorrow. Your gallbladder ultrasound was normal. Take MiraLAX to see if constipation could possibly be causing the symptoms. Return with fever, vomiting, worse, new symptoms or other concerns. - Billing Disposition and Condition Condition: IMPROVED Disposition: Home
== END 2019-02-11 18:00 | disposition home or self-care (01) ==
LOC: UCEAST 15:19
DX: R10.11 Right upper quadrant pain (principal)
CPT/HCPCS: 76705; 81003; 84702; 99212; G0463

== ENCOUNTER 2019-02-22 06:17 | Emergency (ER) | payer SELFPAY ==
--- OUTSIDE RECORDS SUMMARY | 2019-02-22 06:26 | XMS REPORT | Continuity of Care Document ---
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 Payers Date Identification Numbers Payment Provider Subscriber Policy Number: [id number] [facility] Zora Anderson PayID: [id number] [address] [address] [place] [address] Advance Directives Description No Information Available Problems Description No Information Family History Date Family Member(s) Observation Comments First Sister Pcos Social History Type Date Description Comments Sex Unknown Education Highest level completed, Bachelor's Degree Marital Status Single Lives With Boyfriend Diet Healthy, Well Balanced 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 Tobacco Use Start: Unknown Never Smoked Cigarettes ETOH Use Occasionally consumes alcohol Recreational Drug Use Denies Drug Use Tobacco Use Start: Unknown Patient has never smoked Smoking Status Reviewed: 02/12/19 Patient has never smoked Exercise Type/Frequency Exercises regularly Seat Belt/Car Seat Always uses seat belt Currently Active Patient is currently sexually active STD's No STD History Allergies, Adverse Reactions, Alerts Description No Known Drug Allergies Medications Description No Active Medications Medications Administered in Office Medication Date Status Form Strength Qnty SIG Indications Ordering Provider PT SCRN Tbco Administered Injection Liliane Id as Non User 019 MD [place] Immunizations Description No Information Available Vital Signs Date Vital Result Comment 02/12/2019 1:56pm BP Systolic 144 mmHg BP Diastolic 88 mmHg Height 64.5 inches 5'4.50" Weight 220.00 lb BMI (Body Mass Index) 37.2 kg/m2 Last Menstrual Period 1964318 0 Results Description No Information Available Procedures Description No Information Available Encounters Type Date Location Provider Dx Diagnosis Office Visit 02/12/2019 [facility] Liliane Leary MD E28.2 Polycystic ovarian 2:00p syndrome Plan of Treatment Future Appointment(s):03/16/2019 2:30 pm - Liliane Leary MD at [facility]08/2019 7:45 am - Laboratory at [facility]
[2019-02-22] MEDS ORDERED: Ketorolac INJ* 60 MG/2 ML VIAL IM ONE (06:46)
[2019-02-22 07:30] LABS: ABS Basophils 0 10^3/ul (0-0.2); ABS Eosinophils 0.1 10^3/ul (0-0.6); ABS Lymphocytes 1.2 10^3/ul (1.0-4.8); ABS Monocytes 0.8 10^3/ul (0-0.8); ABS Neutrophils 4.7 10^3/ul (1.5-7.7); ABS Nucleated RBC 0 10^3/ul; Eosinophil % 1.7 %; Hematocrit 41 % (33-41); Hemoglobin 13.8 g/dL (12.0-16.0); Lymphocyte % 17.5 %; Mean Corpuscular HGB Conc 34 g/dL (31-36); Mean Corpuscular Hemoglobin 29 pg (27-31); Mean Corpuscular Volume 86 fL (80-97); Mean Platelet Volume 8.1 fL (7.4-10.4); Nucleated Red Blood Cells % 0.1; Platelet Count 215 10^3/uL (150-450); Red Blood Count 4.78 10^6 /uL (3.70-4.87); Red Cell Distribution Width 14 % (10.5-15); White Blood Count 6.8 10^3/uL (3.5-10.8)
[2019-02-22 07:42] LABS: ALT 21 U/L (7-52); AST 16 U/L (13-39); Albumin 3.7 g/dL (3.2-5.2); Albumin/Globulin Ratio 1.5 (1-3); Alkaline Phosphatase 73 U/L (34-104); Anion Gap 5 mmol/L (2-11); Blood Urea Nitrogen 12 mg/dL (6-24); CO2 Carbon Dioxide 23 mmol/L (22-32); Calcium 8.6 mg/dL (8.6-10.3); Chloride 109 mmol/L (101-111); EGFR African American 115.9 (>60); EGFR Non-African American 95.8 (>60); Globulin 2.5 g/dL (2-4); Glucose 109 mg/dL (70-100); Potassium 4.1 mmol/L (3.5-5.0); Sodium 137 mmol/L (135-145); Total Protein 6.2 g/dL (6.4-8.9)
[2019-02-22 07:49] LABS: HCG Pregnancy < 0.60 mIU/mL
[2019-02-22 08:38] VITALS: BP 130/76
--- NOTE | 2019-02-22 08:51 | ED ---
Abdominal Pain/Female - HPI Summary HPI Summary: Patient is a 23-year-old female with history of PCO S recently diagnosed as well as intermittent abdominal pain over the past several months presenting to the ED with abdominal cramping. She states this happens approximately once a month and is not relieved well with Tylenol or ibuprofen. She denies any vaginal bleeding. Denies any urinary symptoms. Denies any back pain, headaches , fevers, sweats, chills. She states she had this one month ago and it lasted approximately 2-3 days. She took [id number]-[id number] Midol with minimal relief at that time. She states she believes she took Midol or Motrin this time, but is unable to remember. She states intermittent A she will have nausea with the abdominal cramping, but no vomiting. Denies any constipation or diarrhea. Abdominal cramping is noted to both sides, and is intermittent. She states she has not had her menses for over one year. She continues to see [facility] CONS[facility] for her continuing PCOS and has had transvaginal ultrasound as well. Denies chance of or STDs. She takes no medications otherwise. - History of Current Complaint Chief Complaint: Sruthi Stated Complaint: "CRAMPS" PER PT Time Seen by Provider: 02/22/19 06:26 Hx Obtained From: Patient Hx Last Menstrual Period: 3 days ago ?: No Onset/Duration: Sudden Onset Timing: Constant Severity Initially: Moderate Severity Currently: Moderate Pain Intensity: 0 Pain Scale Used: 0-10 Numeric Location: Other - Bilateral lower quadrant Radiates: No Character: Cramping Aggravating Factor(s): Nothing Alleviating Factor(s): Nothing Associated Signs and Symptoms: Positive: Negative - Risk Factors Ectopic Risk Factor: Negative Ovarian Torsion Risk Factor: Ovarian Cysts/Tumors Allergies/Adverse Reactions: Allergies Allergy/AdvReac Type Severity Reaction Status Date / Time No Known Allergies Allergy Verified 02/11/19 15:40 PMH/Surg Hx/FS Hx/Imm Hx Previously Healthy: Yes Endocrine/Hematology History: Denies: Hx Anticoagulant Therapy, Hx Diabetes, Hx Thyroid Disease Cardiovascular History: Denies: Hx Hypertension Respiratory History: Denies: Hx Asthma, Hx Chronic Obstructive Pulmonary Disease (COPD) GI History: Denies: Hx Ulcer Neurological History: Reports: Hx Migraine - Surgical History Surgery Procedure, Year, and Place: wrist surgery, TONSILLECTOMY, WISDOM TEETH - Immunization History Date of Tetanus Vaccine: 05/16/2018 Date of Influenza Vaccine: Hx Pertussis Vaccination: No Immunizations Up to Date: Yes Infectious Disease History: No Infectious Disease History: Denies: Hx Hepatitis, Hx Human Immunodeficiency Virus (HIV), Traveled Outside the [place] in Last 30 Days - Family History Known Family History: Positive: Unknown - pt adopted - Social History Occupation: Employed Full-time Lives: With Family Alcohol Use: Occasionally Hx Substance Use: No Substance Use Type: Reports: None Hx Tobacco Use: No Smoking Status (MU): Never Smoked Tobacco Review of Systems Constitutional: Negative Negative: Fever, Chills, Fatigue, Skin Diaphoresis Negative: Palpitations, Chest Pain Negative: Shortness Of Breath, Cough Positive: Abdominal Pain, Nausea. Negative: Vomiting, Diarrhea Genitourinary: Negative Positive: no symptoms reported, see HPI Negative: Arthralgia, Myalgia Skin: Negative All Other Systems Reviewed And Are Negative: Yes Physical Exam Triage Information Reviewed: Yes Vital Signs On Initial Exam: Initial Vitals Temp Pulse Resp BP Pulse Ox 97.1 F 88 16 126/91 98 02/22/19 06:18 02/22/19 06:18 02/22/19 06:18 02/22/19 06:18 02/22/19 06:18 Vital Signs Reviewed: Yes Appearance: Positive: Well-Appearing, Well-Nourished Skin: Positive: Warm, Skin Color Reflects Adequate Perfusion Head/Face: Positive: Normal Head/Face Inspection Eyes: Positive: EOMI, Conjunctiva Clear Neck: Positive: Supple, No Lymphadenopathy Respiratory/Lung Sounds: Positive: Breath Sounds Present Cardiovascular: Positive: RRR, Pulses are Symmetrical in both Upper and Lower Extremities Musculoskeletal: Positive: Normal, Strength/ROM Intact Neurological: Positive: Speech Normal Psychiatric: Positive: Normal, Affect/Mood Appropriate Diagnostics - Vital Signs Vital Signs Temp Pulse Resp BP Pulse Ox 02/22/19 08:36 97.9 F 68 16 130/76 97 02/22/19 06:18 97.1 F 88 16 126/91 98 - Laboratory Lab Results: Lab Results 02/22/19 02/22/19 Range/Units 07:15 07:15 WBC 6.8 (3.5-10.8) 10^3/uL RBC 4.78 (3.70-4.87) 10^6 /uL Hgb 13.8 (12.0-16.0) g/dL Hct 41 (33-41) % MCV 86 (80-97) fL MCH 29 (27-31) pg MCHC 34 (31-36) g/dL RDW 14 (10.5-15) % Plt Count 215 (150-450) 10^3/uL MPV 8.1 (7.4-10.4) fL Neut % (Auto) 69.3 % Lymph % (Auto) 17.5 % [place] % (Auto) 11.1 % Eos % (Auto) 1.7 % Baso % (Auto) 0.4 % Absolute Neuts (auto) 4.7 (1.5-7.7) 10^3/ul Absolute Lymphs (auto) 1.2 (1.0-4.8) 10^3/ul Absolute Monos (auto) 0.8 (0-0.8) 10^3/ul Absolute Eos (auto) 0.1 (0-0.6) 10^3/ul Absolute Basos (auto) 0 (0-0.2) 10^3/ul Absolute Nucleated RBC 0 10^3/ul Nucleated RBC % 0.1 Sodium 137 (135-145) mmol/L Potassium 4.1 (3.5-5.0) mmol/L Chloride 109 (101-111) mmol/L Carbon Dioxide 23 (22-32) mmol/L Anion Gap 5 (2-11) mmol/L BUN 12 (6-24) mg/dL Creatinine 0.75 (0.51-0.95) mg/dL Est GFR ( Amer) 115.9 (>60) Est GFR (Non-Af Amer) 95.8 (>60) BUN/Creatinine Ratio 16.0 (8-20) Glucose 109 H (70-100) mg/dL Calcium 8.6 (8.6-10.3) mg/dL Total Bilirubin 0.30 (0.2-1.0) mg/dL AST 16 (13-39) U/L ALT 21 (7-52) U/L Alkaline Phosphatase 73 (34-104) U/L C-Reactive Protein 11.10 H (<8.01) mg/L Total Protein 6.2 L (6.4-8.9) g/dL Albumin 3.7 (3.2-5.2) g/dL Globulin 2.5 (2-4) g/dL Albumin/Globulin Ratio 1.5 (1-3) Beta HCG, Quant < 0.60 mIU/mL Result Diagrams: 02/22/19 07:15 02/22/19 07:15 Lab Statement: Any lab studies that have been ordered have been reviewed, and results considered in the medical decision making process. Abdominal Pain Fem Course/Dx - Course Course Of Treatment: Physical examination, patient has tenderness to the bilateral lower quadrants on deep palpation. Patient appears well otherwise and nontoxic-appearing. She states her symptoms are currently rated a 5/10. Denies any nausea at this time. Labs obtained are WNL. She is given 1 Toradol shot IM with good relief. I have encouraged her to continue the Toradol and have given her Zofran for at home. This appears to be cramping related to her PCOS or ovuluation. She will follow-up with [facility]. - Diagnoses Differential Diagnosis: Positive: Other - PCOS, abdominal pain, abdominal cramping, ovulation, mittelschmerz Provider Diagnoses: Abdominal pain Discharge - Sign-Out/Discharge Documenting (check all that apply): Patient Departure Patient Received Moderate/Deep Sedation with Procedure: No - Discharge Plan Condition: Stable Disposition: HOME Prescriptions: Ketorolac TAB * [Toradol TAB *] 10 mg PO Q6H #16 tab Ondansetron ODT TAB* [Zofran 4 MG Odt TAB*] 4 mg PO Q6H PRN #12 tab.odt MDD 4 PRN Reason: Nausea Patient Education Materials: Acute Abdominal Pain (ED) Forms: *Work Release Referrals: Valery Alonzo RADAR TECHNICIAN [Primary Care Provider] - Additional Instructions: Please continue to follow up with her [facility] Toradol 4 times daily as needed for discomfort Do not use NSAIDs, including ibuprofen, naproxen or Motrin while taking this medication Do not exceed 4 times daily He may take Tylenol intermittently throughout taking Toradol Zofran up to 4 times daily as needed for nausea - Billing Disposition and Condition Condition: STABLE Disposition: Home
== END 2019-02-22 08:36 | disposition home or self-care (01) ==
LOC: ED 06:17
DX: R10.9 Unspecified abdominal pain (principal); E28.2 Polycystic ovarian syndrome
CPT/HCPCS: 36415; 80053; 84702; 85025; 86140; 96374; 99282; J1885

== ENCOUNTER 2019-02-24 08:03 | Emergency (ER) | payer SELFPAY ==
[2019-02-24] MEDS ORDERED: NS 0.9% 1000 ML** 1,000 ML IV ONE (08:18)
[2019-02-24] MEDS ORDERED: Ondansetron INJ* 2 MG/ML VIAL IV ONE (08:19)
--- NOTE | 2019-02-24 08:40 | ED ---
GI/ HPI - HPI Summary HPI Summary: 23-year-old female presents with nausea and vomiting for the past 2 days. She states she started having diarrhea. No recent travel or antibiotic use. No else is sick. She just started her period. She has not had her period in a year. She states that her abdominal pain has resolved. She was seen here earlier this week for similar symptoms. She states the Zofran helps with the nausea but then she vomits it up. She denies any blood in her stool. No history of this. No previous surgeries. Has a history of PCOS. - History of Current Complaint Chief Complaint: EDNauseaVomitDiarrh Time Seen by Provider: 02/24/19 08:08 Stated Complaint: ABD PAIN/VOMITING/DIARRHEA PER PT Hx Last Menstrual Period: 3 days ago Pain Intensity: 3 - Allergy/Home Medications Allergies/Adverse Reactions: Allergies Allergy/AdvReac Type Severity Reaction Status Date / Time No Known Allergies Allergy Verified 02/24/19 08:07 PMH/Surg Hx/FS Hx/Imm Hx Endocrine/Hematology History: Denies: Hx Anticoagulant Therapy, Hx Diabetes, Hx Thyroid Disease Cardiovascular History: Denies: Hx Hypertension Respiratory History: Denies: Hx Asthma, Hx Chronic Obstructive Pulmonary Disease (COPD) GI History: Denies: Hx Ulcer Neurological History: Reports: Hx Migraine - Surgical History Surgery Procedure, Year, and Place: wrist surgery, TONSILLECTOMY, WISDOM TEETH - Immunization History Date of Tetanus Vaccine: 05/16/2018 Date of Influenza Vaccine: Infectious Disease History: No Infectious Disease History: Denies: Hx Hepatitis, Hx Human Immunodeficiency Virus (HIV), Traveled Outside the [place] in Last 30 Days - Family History Known Family History: Positive: Unknown - pt adopted - Social History Alcohol Use: Occasionally Hx Substance Use: No Substance Use Type: Reports: None Hx Tobacco Use: No Smoking Status (MU): Never Smoked Tobacco Review of Systems Negative: Fever Negative: Chest Pain Negative: Shortness Of Breath Positive: Vomiting, Diarrhea, Nausea. Negative: Abdominal Pain All Other Systems Reviewed And Are Negative: Yes Physical Exam Triage Information Reviewed: Yes Vital Signs On Initial Exam: Initial Vitals Temp Pulse Resp BP Pulse Ox 96.8 F 75 17 137/88 97 02/24/19 08:04 02/24/19 08:04 02/24/19 08:04 02/24/19 08:04 02/24/19 08:04 Vital Signs Reviewed: Yes Appearance: Positive: Well-Appearing Skin: Positive: Warm, Dry Head/Face: Positive: Normal Head/Face Inspection Eyes: Positive: Normal, Conjunctiva Clear ENT: Positive: Pharynx normal Respiratory/Lung Sounds: Positive: Clear to Auscultation, Breath Sounds Present Cardiovascular: Positive: Normal, RRR Abdomen Description: Positive: Nontender, Soft Bowel Sounds: Positive: Present Musculoskeletal: Positive: Normal Neurological: Positive: Normal Psychiatric: Positive: Normal Diagnostics - Vital Signs Vital Signs Temp Pulse Resp BP Pulse Ox 02/24/19 08:14 77 95 02/24/19 08:13 83 143/94 92 02/24/19 08:12 66 161/104 96 02/24/19 08:04 96.8 F 75 17 137/88 97 - Laboratory Result Diagrams: 02/24/19 08:37 02/24/19 08:37 Lab Statement: Any lab studies that have been ordered have been reviewed, and results considered in the medical decision making process. Re-Evaluation - Re-Evaluation First Eval Re-Evaluation Time: 09:14 Comment: attempting to eat crackers Second Eval Re-Evaluation Time: 09:43 Comment: no vomiting GIGU Course/Dx - Course Course Of Treatment: 23 year old female presents with nausea vomiting diarrhea for the past 2 days. She is currently on her period. No fever. Denies any bowel pain currently. On exam nontender abdomen. White blood count normal. Urine likely contaminant from menstrual cycle. crp elevated. gave fluids and zofran and crackers and tolerated it well. discussed could be gastroenteritis vs menses. patient understand and agrees with plan. - Diagnoses Differential Diagnoses - Female: Gastroenteritis (Viral), Gastroenteritis ( Bacterial), Urinary Tract Infection Provider Diagnoses: Diarrhea, Vomiting Discharge - Sign-Out/Discharge Documenting (check all that apply): Patient Departure Patient Received Moderate/Deep Sedation with Procedure: No - Discharge Plan Condition: Good Disposition: HOME Prescriptions: Loperamide CAP* [Imodium CAP*] 2 mg PO SEE INSTRUCTIONS #10 cap MDD 6 Patient Education Materials: Acute Diarrhea (ED) Forms: *Work Release Referrals: Valery Alonzo, [employer] [Primary Care Provider] - Additional Instructions: Loperamide 2 mg (1 tablet) up to 6 tablets a day, you were already given two tablets today Zofran every 6 hours as needed for nausea Drink small amounts of fluid as tolerated When able to eat follow BRAT diet: Bananas, rice, applesauce, toast Take ibuprofen or Tylenol for pain as needed every 6 hours Follow up with primary within 5 days Return to ED if develop any new or worsening symptoms - Billing Disposition and Condition Condition: GOOD Disposition: Home - Attestation Statements Provider Attestation: I was available for consult. This patient was seen by the [facility]. The patient was not presented to, seen by, or examined by me. -Tavia
[2019-02-24 08:46] LABS: Urine Appearance Clear; Urine Bacteria Absent (Absent); Urine Bilirubin Negative (Negative); Urine Blood 3+ (Negative); Urine Color Yellow; Urine Glucose Negative (Negative); Urine Ketones Trace (Negative); Urine Nitrite Negative (Negative); Urine Protein Negative (Negative); Urine Red Blood Cell 3+(>10/hpf) (Absent); Urine Specific Gravity 1.014 (1.010-1.030); Urine Squamous Epithelial Cell Present (Absent); Urine Urobilinogen Negative (Negative); Urine White Blood Cell Trace(0-5/hpf) (Absent)
[2019-02-24 08:54] LABS: ABS Basophils 0 10^3/ul (0-0.2); ABS Eosinophils 0 10^3/ul (0-0.6); ABS Monocytes 0.8 10^3/ul (0-0.8); ABS Neutrophils 2.4 10^3/ul (1.5-7.7); ABS Nucleated RBC 0 10^3/ul; Eosinophil % 1.1 %; Hematocrit 40 % (33-41); Hemoglobin 13.4 g/dL (12.0-16.0); Mean Corpuscular HGB Conc 33 g/dL (31-36); Mean Corpuscular Hemoglobin 28 pg (27-31); Mean Corpuscular Volume 86 fL (80-97); Mean Platelet Volume 7.7 fL (7.4-10.4); Nucleated Red Blood Cells % 0.1; Platelet Count 199 10^3/uL (150-450); Red Blood Count 4.71 10^6 /uL (3.70-4.87); Red Cell Distribution Width 14 % (10.5-15); White Blood Count 4.3 10^3/uL (3.5-10.8)
[2019-02-24 09:13] LABS: ALT 27 U/L (7-52); AST 22 U/L (13-39); Albumin 3.8 g/dL (3.2-5.2); Albumin/Globulin Ratio 1.5 (1-3); Alkaline Phosphatase 62 U/L (34-104); Anion Gap 5 mmol/L (2-11); BUN/Creatinine Ratio 11.4 (8-20); Blood Urea Nitrogen 10 mg/dL (6-24); C Reactive Protein 46.84 mg/L (<8.01); CO2 Carbon Dioxide 27 mmol/L (22-32); Calcium 8.2 mg/dL (8.6-10.3); Chloride 108 mmol/L (101-111); EGFR African American 96.4 (>60); EGFR Non-African American 79.6 (>60); Globulin 2.5 g/dL (2-4); Glucose 98 mg/dL (70-100); Potassium 3.5 mmol/L (3.5-5.0); Sodium 140 mmol/L (135-145); Total Protein 6.3 g/dL (6.4-8.9)
[2019-02-24 09:19] LABS: HCG Pregnancy < 0.60 mIU/mL
[2019-02-24] MEDS ORDERED: Loperamide CAP* 2 MG PO ONE ×2 (09:37→09:38)
[2019-02-24 09:54] VITALS: BP 106/87
== END 2019-02-24 09:53 | disposition home or self-care (01) ==
LOC: ED 08:03
DX: R11.2 Nausea with vomiting, unspecified (principal); R19.7 Diarrhea, unspecified
CPT/HCPCS: 36415; 80053; 81003; 81015; 83690; 83735; 84702; 85025; 86140; 87086; 96361; 96374; 99283; A9270-GY; J2405

== ENCOUNTER → 2019-07-22 | Day surgery (SDC) | payer OTHER ==
[~2019-07-22] MED LIST: Atracurium* 10 MG/ML 10 ML VIAL ONE; Buffered Lidocaine 1% SYRIN* 1 ML/SYRINGE INTRADERM ONE; Bupivacaine 0.25% SDV PF* 10 ML VIAL INJ ONE; Dexamethasone IV* 4 MG/ML 1 ML (4 MG) IV SLOW PU ONE; Dexamethasone IV* 4 MG/ML 1 ML (4 MG) ONE; DiMENhydriNATE IV* 50 MG/ML VIAL IV PUSH PRN; DiMENhydriNATE IV* 50 MG/ML VIAL ONE; Famotidine IV* 10 MG/ML 2 ML (20 mg) IV ONE; Famotidine IV* 10 MG/ML 2 ML (20 mg) ONE; HYDROmorphone INJ1* 1 MG/ML SYRINGE ONE; Lactated Ringers 1000 ML Bag* 1,000 ML IV SCH; Lidocaine 1% w EPI 1:100,000* MDV 20 ML VIAL ONE; Lidocaine 2% PF * 5 ML VIAL ONE; Metoprolol Tartrate IV* 1 MG/ML 5 ML VIAL ONE; Midazolam* 1 MG/ML 5 ML VIAL (5 MG) ONE; Naloxone* 0.4 MG/ML 1 ML VIAL IV PRN; Ondansetron INJ* 2 MG/ML VIAL IV PRN; Ondansetron INJ* 2 MG/ML VIAL ONE; Propofol* 10 MG/ML 20 ML BTL ONE; Scopolamine 1.5 mg* PATCH ONE; ceFAZolin 2 GM in NS PREMIX(*) 2 GM/100 ML BAG IVPB ONE; fentaNYL* 50 MCG/ML 2 ML VIAL (100 MCG VIAL) ONE; fentaNYL* 50 MCG/ML 5 ML VIAL (250 MCG VIAL) ONE; oxyCODONE/Acetamin 5/325 MG* TAB PO PRN
[2019-07-22] MEDS: HYDROmorphone INJ1* 1 MG/ML SYRINGE IV PRN ×5 (11:44→12:04)
[2019-07-22] MEDS: fentaNYL* 50 MCG/ML 2 ML VIAL (100 MCG VIAL) IV PRN ×2 (12:14→12:20)
[2019-07-22 13:28] VITALS: BP 142/91
== END | disposition home or self-care (01) ==
LOC: OR 05:54
PROVIDERS: ATTEND Plastic Surgery
DX: N62 Hypertrophy of breast (principal); E66.9 Obesity, unspecified; E28.2 Polycystic ovarian syndrome
CPT/HCPCS: 81025; 88305; A9270-GY; A9272-GY; J0690; J1100; J1170; J1240; J2250; J2405; J2704; J3010; J3490

== ENCOUNTER 2021-08-22 20:41 | Inpatient (IN) ==
[2021-08-22] MEDS ORDERED: Witch Hazel PAD JAR TOPICAL PRN (20:55)
[2021-08-22] MEDS ORDERED: Dibucaine 1% OINT 28.35 GM TUBE PR PRN (20:55)
[2021-08-22] MEDS ORDERED: Buffered Lidocaine 1% SYRIN 1 ml INTRADERM ONE (20:55)
[2021-08-22] MEDS ORDERED: Lactated Ringers 1000 ml BAG 1,000 ML IV ONE ×2 (20:55→20:57)
[2021-08-22] MEDS ORDERED: Lactated Ringers 1000 ml BAG 1,000 ML IV SCH ×2 (21:00)
[2021-08-22] MEDS ORDERED: Oxytocin in LR 20 UNITS/1,000 ML BAG IVPB SCH (21:00)
[2021-08-22 23:55] LABS: ABS Lymphocytes 2.7 10^3/ul (1.0-4.8); ABS Neutrophils 9.9 10^3/ul (1.5-7.7); Eosinophil % 0.3 %; Hematocrit 37 % (35-47); Hemoglobin 12.4 g/dL (12.0-16.0); Lymphocyte % 19.4 %; Mean Corpuscular HGB Conc 34 g/dL (31-36); Mean Corpuscular Hemoglobin 29 pg (27-31); Mean Corpuscular Volume 86 fL (80-97); Mean Platelet Volume 8.5 fL (7.4-10.4); Nucleated Red Blood Cells % 0.1; Platelet Count 281 10^3/uL (150-450); Red Blood Count 4.25 10^6 /uL (3.70-4.87); Red Cell Distribution Width 14 % (10-15); White Blood Count 13.7 10^3/uL (3.5-10.8)
[2021-08-23 00:02] LABS: Activated Partial Thrombo Time 24.6 seconds (26.0-38.0); Fibrinogen 431.2 mg/dL (110.8-404.3); INR 1.02 (0.86-1.15)
[2021-08-23 00:06] LABS: Albumin/Globulin Ratio 1.3 (1-3); Calcium 9.7 mg/dL (8.6-10.3); Globulin 3.1 g/dL (2-4); Potassium 3.7 mmol/L (3.5-5.0); Total Bilirubin 0.4 mg/dL (0.2-1.0); Total Protein 7.1 g/dL (6.4-8.9)
[2021-08-23 00:41] LABS: Platelet Count 281 10^3/ul (150-450)
[2021-08-23 01:38] LABS: Schistocytes ABSENT
[2021-08-23 05:43] LABS: Urine Benzodiazepine Screen None Detected (None Detect); Urine Cannabinoids Screen Presumptive Positive (None Detect); Urine Opiates Screen None Detected (None Detect)
[2021-08-23 08:31] LABS: ABS Eosinophils 0.1 10^3/ul (0-0.6); ABS Lymphocytes 1.9 10^3/ul (1.0-4.8); ABS Monocytes 0.6 10^3/ul (0-0.8); ABS Neutrophils 8.6 10^3/ul (1.5-7.7); Eosinophil % 0.6 %; Hematocrit 33 % (35-47); Hemoglobin 11.4 g/dL (12.0-16.0); Lymphocyte % 17.2 %; Mean Corpuscular HGB Conc 35 g/dL (31-36); Mean Corpuscular Hemoglobin 30 pg (27-31); Mean Corpuscular Volume 86 fL (80-97); Mean Platelet Volume 7.6 fL (7.4-10.4); Platelet Count 247 10^3/uL (150-450); Red Cell Distribution Width 14 % (10-15); White Blood Count 11.3 10^3/uL (3.5-10.8)
[2021-08-23 11:55] VITALS: BP 128/63
== END 2021-08-23 14:30 | disposition home or self-care (01) | DRG 560 ==
LOC: MCHOBOUT 20:46 → MCHOB 20:47
PROVIDERS: ADMIT Obstetrics & Gynecology; ATTEND Obstetrics & Gynecology